=== PATIENT | male | born 1990 | race African-American/Black ===

== ENCOUNTER 2016-11-04 16:43 | Emergency (ER) | payer SELFPAY ==
[2016-11-04 17:48] VITALS: BP 118/70
--- NOTE | 2016-11-04 18:11 | ER Document Report ---
HPI - HPI Patient complains to provider of: sinus pain and pressure Onset: Other - 3 weeks Onset/Duration: Gradual Quality of pain: Throbbing Context: 26-year-old smoker male with sinus congestion, green mucus, postnasal drip and mild cough for 3 weeks. No fever. Today he vomited once and had one episode of diarrhea. Associated Symptoms: None Exacerbated by: Denies Relieved by: Denies Similar symptoms previously: No Recently seen / treated by doctor: No - ROS ROS below otherwise negative: Yes Systems Reviewed and Negative: Yes All other systems reviewed and negative Past Medical History - General Information source: Patient - Social History Smoking Status: Current Every Day Smoker Frequency of alcohol use: None Drug Abuse: None Lives with: Spouse/Significant other Family History: CAD, DM, Hyperlipidemia, Hypertension, Other - seizures Surgical Hx: Negative - Immunizations Hx Diphtheria, Pertussis, Tetanus Vaccination: No Vertical Provider Document - CONSTITUTIONAL Agree With Documented VS: Yes Exam Limitations: No Limitations - INFECTION CONTROL TRAVEL OUTSIDE OF THE [place] IN LAST 30 DAYS: No - HEENT HEENT: Normocephalic, PERRLA, Pharyngeal Erythema. negative: Conjuctival Injection, Tympanic Membrane Red, Tympanic Membrane Bulging Notes: boggy nares - NECK Neck: Supple. negative: Lymphadenopathy-Left, Lymphadenopathy-Right - RESPIRATORY Respiratory: Breath Sounds Normal, No Respiratory Distress O2 Sat by Pulse Oximetry: 98 - CARDIOVASCULAR Cardiovascular: Regular Rate, Regular Rhythm - GI/ABDOMEN Gastrointestinal: Abdomen Soft, Abdomen Non-Tender, No Organomegaly - MUSCULOSKELETAL/EXTREMETIES Musculoskeletal/Extremeties: MAEW, FROM - NEURO Level of Consciousness: Awake, Alert, Appropriate - DERM Integumentary: Warm, Dry, No Rash Course - Vital Signs Vital signs: Temp Pulse Resp BP Pulse Ox 98.7 F 79 16 118/70 98 11/04/16 17:46 11/04/16 17:46 11/04/16 17:46 11/04/16 17:46 11/04/16 17:46 Discharge - Discharge Clinical Impression: sinusitis Condition: Good Disposition: HOME, SELF-CARE Instructions: Sinusitis ([facility]), Amoxicillin ([facility]), Stop Smoking ([facility]), ENT Additional Instructions: to er if worse list of family practice doctors for follow up see ENT doctor if sinus problems persists saline nasal spray four times per day Stop smoking Please complete the patient satisfaction survey if you get one, and return it.. If you do not receive a survey, then you can go to the [facility] website, [email or web address] and place your comments about your very good care. Thank you very much. It was a pleasure being your medical provider today. Prescriptions: Amoxicillin Trihydrate [Amoxil 500 mg Capsule] 1,000 mg PO BID #30 cap Forms: Return to Work
== END 2016-11-04 18:35 | disposition home or self-care (01) ==
LOC: ER 16:43
DX: J32.9 Chronic sinusitis, unspecified (principal); R09.81 Nasal congestion; F17.200 Nicotine dependence, unspecified, uncomplicated; R09.82 Postnasal drip; R05 Cough; R11.10 Vomiting, unspecified; R19.7 Diarrhea, unspecified
CPT/HCPCS: 99283

== ENCOUNTER 2017-12-29 07:22 | Emergency (ER) | payer SELFPAY ==
[2017-12-29 07:36] VITALS: BP 116/70
--- NOTE | 2017-12-29 07:45 | ER Document Report ---
ED General - General Chief Complaint: Cold Symptoms Stated Complaint: COLD SYMPTOMS Mode of Arrival: Ambulatory Information source: Patient TRAVEL OUTSIDE OF THE [place] IN LAST 30 DAYS: No - Related Data Allergies/Adverse Reactions: No Known Allergies Allergy (Verified 12/29/17 08:33) Past Medical History - General Information source: Patient - Social History Smoking Status: Never Smoker Family History: CAD, DM, Hyperlipidemia, Hypertension, Other - seizures - Immunizations Hx Diphtheria, Pertussis, Tetanus Vaccination: No Review of Systems - Review of Systems Constitutional: No symptoms reported EENT: See HPI Cardiovascular: No symptoms reported Respiratory: See HPI Gastrointestinal: No symptoms reported Genitourinary: No symptoms reported Male Genitourinary: No symptoms reported Musculoskeletal: No symptoms reported Skin: No symptoms reported Hematologic/Lymphatic: No symptoms reported Neurological/Psychological: No symptoms reported Physical Exam - Vital signs Vitals: Temp Pulse Resp BP Pulse Ox 98.4 F 63 16 116/70 98 12/29/17 07:26 12/29/17 07:26 12/29/17 07:26 12/29/17 07:26 12/29/17 07:26 - Notes Notes: PHYSICAL EXAMINATION: GENERAL: Well-appearing, well-nourished and in no acute distress. HEAD: Atraumatic, normocephalic. EYES: Pupils equal round and reactive to light, extraocular movements intact, sclera anicteric, conjunctiva are normal. ENT: Nares boggy bilaterally, no septal hematoma, oropharynx clear without exudates. Moist mucous membranes. NECK: Normal range of motion, supple without lymphadenopathy LUNGS: Manage breath sounds in bilateral upper lobes, breathing treatment given , breath sounds clear in all lobes equally and bilaterally. No wheezes rales or rhonchi. HEART: Regular rate and rhythm without murmurs ABDOMEN: Soft, nontender, nondistended abdomen. No guarding, no rebound. No masses appreciated. Musculoskeletal: Normal range of motion, no pitting or edema. No cyanosis. NEUROLOGICAL: Cranial nerves grossly intact. Normal speech, normal gait. Normal sensory, motor exams PSYCH: Normal mood, normal affect. SKIN: Warm, Dry, normal turgor, no rashes or lesions noted. Course - Re-evaluation Re-evalutation: 12/29/17 08:29 Presentation of several days of sore throat in an otherwise well-appearing patient. Rapid strep is negative. History and exam are not consistent with a retropharyngeal abscess or peritonsillar abscess. Airway is patent. No difficulty handling oral secretions. Vitals within normal limits. Patient was treated with a course of prednisone as well as tessalon perls, Ventolin inhaler and antihistamine. advised receiving symptomatic care. Suspect likely viral pharyngitis along with exacerbation of seasonal allergies. At this time will discharge with return precautions and follow-up recommendations. Verbal discharge instructions given a the bedside and opportunity for questions given. Medication warnings reviewed. Patient is in agreement with this plan and has verbalized understanding of return precautions and the need for primary care follow-up in the next 24-72 hours. - Vital Signs Vital signs: Temp Pulse Resp BP Pulse Ox 98.4 F 63 16 116/70 98 12/29/17 07:26 12/29/17 07:26 12/29/17 07:26 12/29/17 07:26 12/29/17 07:26 Discharge - Discharge Clinical Impression: Viral pharyngitis, Cough, Seasonal allergies Condition: Good Disposition: HOME, SELF-CARE Instructions: Upper Respiratory Illness ([facility]), Cough Suppressant & Expectorant Medications, Viral Syndrome ([facility]) Additional Instructions: Your strep test is negative. Your symptoms are likely due to an viral infection and will resolve in the next 1-2 weeks. You have also been given a dose of steroids to help with your throat discomfort. Please continue to take ibuprofen 600 mg every 6 hours or Tylenol 1000 mg every 6 hours as needed for throat discomfort. You can also gargle with salt water. Continue to drink plenty of fluids. Follow-up with your primary care doctor in the next several days. Return if you become unable to swallow, have difficulty breathing, pass out, have persistent vomiting that prevents you from being able to tolerate fluids, or have any other symptoms that are concerning to you. Prescriptions: Benzonatate [Tessalon Perles 100 mg Capsule] 100 mg PO Q8HP PRN #20 capsule PRN Reason: Albuterol Sulfate [Ventolin Hfa] 1 - 2 puff IH Q4 PRN #1 [email or web address] PRN Reason: Fluticasone Propionate [Flonase Nasal [place] 50 Mcg/[place] 16 gm] 1 spray NASL Q12 #1 bottle Prednisone [Deltasone 20 mg Tablet] 3 tab PO DAILY 5 Days #15 tablet Referrals: GOPI VALLECILLO DO [NO LOCAL MD] - Follow up as needed
[2017-12-29] MEDS ORDERED: IPRATROPIUM/ALBUTEROL 0.5-2.5 MG/3 ML AMPUL NEB ONE (08:03)
== END 2017-12-29 08:47 | disposition home or self-care (01) ==
LOC: ER 07:22
DX: J02.9 Acute pharyngitis, unspecified (principal); B97.89 Other viral agents as the cause of diseases classified elsewhere; R05 Cough; J30.2 Other seasonal allergic rhinitis
CPT/HCPCS: 94640; 99283; 87070; 87880; J7620